=== PATIENT | male | born 1950 | race Caucasian/White ===

== ENCOUNTER → 2024-02-22 14:37 | Outpatient (REF) | payer OTHER, SELFPAY | LOC: HWRAD 14:37 | PROVIDERS: ATTENDING PHYSICIAN Podiatrist Foot & Ankle Surgery; FAMILY PHYSICIAN Internal Medicine | DX: M72.2 Plantar fascial fibromatosis (principal) | CPT/HCPCS: 73630 ==

== ENCOUNTER 2024-10-20 06:20 | Day surgery (SDC) | payer OTHER, SELFPAY | END 2024-10-20 12:04 | disposition home or self-care (01) | LOC: GI 06:20 | PROVIDERS: ATTENDING PHYSICIAN Internal Medicine Gastroenterology; FAMILY PHYSICIAN Internal Medicine | DX: Z12.11 Encounter for screening for malignant neoplasm of colon (principal); D12.5 Benign neoplasm of sigmoid colon; K64.8 Other hemorrhoids; Z86.0100 Personal history of colon polyps, unspecified | CPT/HCPCS: 45385; 88305 ==

== ENCOUNTER 2024-10-23 13:43 | Emergency (ER) | payer MEDICARE, OTHER, SELFPAY ==
[2024-10-23 13:45] VITALS: BP 162/86
--- NOTE | 2024-10-23 14:32 | ED.GENMED ---
History of Present Illness
General
Chief Complaint: Fall
Source: patient
Exam Limitations: none
Time Seen by Provider: 10/23/24 14:29
Nursing documentation reviewed up to this point in time: agreed with
History of Present Illness
History of Present Illness:
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 Patient states that he was walking into the bathroom with socks
on when he slipped on the bathroom floor and fell forward onto his left side, injuring his left shoulder and hitting his head on the bathtub. Patient did not lose consciousness. She able to get up and ambulate after the fall without any
difficulty. Patient states he has had no headaches but his left shoulder has been bothering him. Patient denies any neck pain. Patient denies any dizziness lightheadedness. Patient denies any chest pain or shortness of breath. He has been
taking Tylenol and Motrin at home which has provided him with some relief. Patient denies any paresthesias in his upper extremities. Patient declining medication for pain at this time.
Past History
Past History
ED Past Medical History: Psychiatric and Other (Not applicable)
ED Past Surgical History: Other (Not applicable)
Social History
Tobacco: Former smoker
Alcohol: Occasional
Personal:
Living: with family
Review of Systems
Review of Systems
All Other Systems: ROS reviewed and negative except as documented in HPI and ROS
Phy Exam
Physical Exam
Physical Exam:
General: Patient is well appearing and in no acute distress; non-toxic
Skin: Warm and dry, no rashes or lesions. Brisk capillary refill.
Head: Normocephalic, atraumatic
Eyes: Sclera non-icteric. EOMs intact.
Neck: No midline cervical tenderness to palpation
Cardiac: Regular rate and rhythm, no murmurs
Pulm: Normal respiratory effort, no wheezes, rales, rhonchi
Abdomen: No abdominal tenderness to palpation, no signs of trauma
Musculoskeletal: Tenderness to palpation of the left distal clavicle and left acromion process, full range of motion of bilateral upper extremeties
Neuro: CN II-XII intact, no focal neurologic deficits. Sensation intact.
Psychiatric: Appropriate mood and affect.
Course
Orders/Labs/Results
Orders:
Orders
10/23/24 13:48
Shoulder, Left, Trauma CR [CR Shoulder, Trauma - Left] Urgent
Comment:
Reason For Exam: fall, injury, pain
10/23/24 13:[address] [CT Head W/o Iv Contrast] Urgent
Comment:
Reason For Exam: fall, head injury
10/23/24 14:31
CT Cervical Spine W/o Iv Contr Urgent
Comment:
Reason For Exam: head trauma
10/23/24 14:54
Shoulder Immobilizer Left- Tx ONCE
Vital Signs
Initial and Last Documented VS:
Initial Vital Signs
Temp Pulse Resp BP Pulse Ox
97.6 F 85 18 162/86 98
10/23/24 13:45 10/23/24 13:45 10/23/24 13:45 10/23/24 13:45 10/23/24 13:45
Last Documented Vital Signs
Temp Pulse Resp BP Pulse Ox
97.6 F 85 20 162/86 98
10/23/24 13:45 10/23/24 13:45 10/23/24 16:15 10/23/24 13:45 10/23/24 13:45
MDM/Problems Addressed
Differential Diagnosis Includes:
Differentials include shoulder sprain, clavicular fracture, acromion fracture, rib fracture, subdural hematoma, epidural hematoma
MDM/Problems Addressed:
74-year-old male presents emergency department with concerns of left shoulder pain following a fall. He also hit his head during the fall. The fall occurred 2 days ago. He did not lose consciousness. He does not take any blood thinners other
than aspirin and clopidogrel. His x-ray does reveal a nondisplaced fracture of the acromion process. Discussed with patient how this is usually managed conservatively. Patient placed in shoulder sling. Discussed follow-up with Ortho and that he
should call the office tomorrow morning to schedule appointment. Patient expressed understanding. Patient stable for discharge.
Chronic conditions affecting care:
Hypertension, hyperlipidemia
*Pulse Oximetry
Patient hypoxic: no
*Critical Care Note
Total Time (30-74mins, 75-104mins- exclusive of procedures): Not Applicable
Data Reviewed
Review of Other/Old Records Reveals: Records (Reviewed [facility], reviewed previous ER physician documentation from 12/24/2015 patient seen for headache, reviewed discharge summary from 07/14/2015 patient seen for acute CVA)
Source: patient and records
Patient Management
Escalation/DeEscalation of care consider admission/obs:
Admit not indicated, patient stable for discharge
ED Attending Note
-
Portions of this chart may have been created with voice recognition software.� Occasional wrong word or��sound alike� substitutions may have occurred due to the inherent limitations of voice recognition software.
Discharge Plan
Departure
Patient Disposition: Home (Routine Discharge)
Date of Disposition: 10/23/24
Time of Disposition: 16:57
Patient with high blood pressure during this ER visit?: Yes
Condition: Good
Discharge Problem:
Fracture of acromial process, Fall
Instructions: Preventing falls in adults, How to use a shoulder sling
Prescriptions:
No Action
lorazepam 0.5 MG tablet
0.5 mg PO DAILY
escitalopram oxalate 10 MG tablet
10 mg PO DAILY
aspirin 81 MG tablet,delayed release (DR/EC)
81 mg PO DAILY Qty: 0 0RF
clopidogrel 75 MG tablet
75 mg PO DAILY Qty: 30 0RF
atorvastatin 10 MG tablet
10 mg PO QPM Qty: 30 0RF
Referrals:
Mendoza Deras MD [Active] - Call in 1-3 days for appt
Yasir Goins DO [Family Provider] -
Activity Restrictions/Additional Instructions:
Your CT scan of your head and cervical spine were normal.
Your x-ray shows a nondisplaced fracture of the acromion process. Please wear your shoulder immobilizer. Please call the attached number to follow-up with orthopedics. You can take Tylenol as needed for pain.
ease return emergency department should develop the sensation in your left upper extremity, numbness and tingling, pallor, acute worsening of your pain, or any other signs or symptoms worrisome to you.
Interventions
Interventions:
*Risk Screen - Suicide Last Done: 10/23/24 13:45
*General Assessment Last Done: 10/23/24 13:45
*Neglect/Abuse Screening Last Done: 10/23/24 13:45
*ED- Fall Risk Assessment Last Done: 10/23/24 16:15
*ED COVID-19 Vaccine History Last Done: 10/23/24 16:15
*Nursing Disposition Last Done: 10/23/24 17:02
ED-Musculoskeletal Assessment Last Done: 10/23/24 15:27
ED- Neurological Assessment Last Done: 10/23/24 15:27
ED-Skin Assessment Last Done: 10/23/24 15:27
Discharge Date and Time
Discharge Date/Time: 10/23/24 17:03
Print Language: AFGHAN
== END 2024-10-23 17:03 | disposition home or self-care (01) ==
LOC: EMR 13:43
PROVIDERS: EMERGENCY PHYSICIAN Emergency Medicine; FAMILY PHYSICIAN Internal Medicine
DX: S42.125A Nondisplaced fracture of acromial process, left shoulder, initial encounter for closed fracture (principal); S09.90XA Unspecified injury of head, initial encounter; W01.0XXA Fall on same level from slipping, tripping and stumbling without subsequent striking against object, initial encounter; I10 Essential (primary) hypertension; E78.5 Hyperlipidemia, unspecified; Z86.73 Personal history of transient ischemic attack (TIA), and cerebral infarction without residual deficits; Z79.02 Long term (current) use of antithrombotics/antiplatelets; Z79.82 Long term (current) use of aspirin; Z87.891 Personal history of nicotine dependence
CPT/HCPCS: 99284; 70450; 72125; 73030

== ENCOUNTER → 2025-05-06 08:04 | Outpatient (REF) | payer MEDICARE, SELFPAY | LOC: PAVMRI 08:04 | PROVIDERS: ATTENDING PHYSICIAN Physician Assistant Surgical; FAMILY PHYSICIAN Internal Medicine | DX: M25.551 Pain in right hip (principal) | CPT/HCPCS: 73721 ==